=== PATIENT | male | born 2000 | race Caucasian/White ===

== ENCOUNTER 2023-04-08 10:10 | Emergency (ER) | payer BC, SELFPAY ==
[2023-04-08 10:21] VITALS: BP 115/79; PULSE 71; RESP 16; TEMP 36.7; O2SAT 100
--- NOTE | 2023-04-08 10:40 | ED.GENADULT ---
HPI - General Adult General Chief complaint: Dizziness Stated complaint: LIGHT HEADED/CHEST TINGLING THROUGHOUT BODY Time Seen by Provider: 04/08/23 10:24 Source: patient and RN notes reviewed Mode of arrival: ambulatory Limitations: no limitations History of Present Illness HPI narrative: Patient presents today complaining of short episodes of tingling to the chest that extends to the head and face. States these episodes last for only a few seconds and or more frequent when he is lying down to go to sleep. Today he had an episode as he was driving to work and states it was, ?very scary. States he has had 5-6 of these episodes over the past 4 days. Denies chest pain, shortness of breath, or any additional symptoms during these episodes. Denies history of diagnosed anxiety, but states, ?but I a.m. extremely anxious person. ? Reports history of panic attacks, but states this does not feel the same. Related Data Home Medications Medication Instructions Recorded Confirmed finasteride 1 mg tablet 1 mg PO DAILY 04/08/23 04/08/23 omeprazole 40 mg capsule,delayed 40 mg PO DAILY 04/08/23 04/08/23 release Allergies Allergy/AdvReac Type Severity Reaction Status Date / Time No Known Allergies Allergy Verified 04/08/23 10:20 Review of Systems Review of Systems: CONSTITUTIONAL: Denies body aches, fever, chills, or sweats. EYES: Denies visual changes, redness, or discharge. ENT: Denies rhinorrhea, congestion, sore throat, or otalgia. CARDIOVASCULAR: Denies chest pain, palpitations, or edema. RESPIRATORY: Denies cough or dyspnea. GASTROINTESTINAL: Denies abdominal pain, nausea, vomiting, or diarrhea. GENITOURINARY: Denies dysuria or hematuria. SKIN: Denies rash, itching, or wounds. MUSCULOSKELETAL: Denies back pain, joint pain, or myalgia. NEUROLOGIC: Denies headache, numbness, tingling, or weakness. Tingling in the chest and head PSYCH: Denies depression or anxiety. [facility] Social History Social History Smoking status: Never smoker Comments At time of signature, I have reviewed and agree with nursing past medical, surgical, social and family history unless otherwise noted. Please see nursing chart for further information. There is no relevant family history pertinent to the presenting complaint Exam Narrative: GENERAL: Well-appearing, well-nourished, and in no acute distress. HEAD: Normocephalic, atraumatic. EYES: EOMI. PERRL. No redness or drainage. Conjunctivae normal. ENT: Mucous membranes pink and moist. NECK: Normal AROM. Supple. No lymphadenopathy. CHEST: No respiratory distress. Clear to auscultation. HEART: Regular rate and rhythm. No murmur appreciated. Normal peripheral pulses. EXTREMITIES: Normal range of motion. No edema. Hand structural engineer equal and strong. Dorsiflexion and plantar flexion equal and strong against resistance. SKIN: Warm, dry, no rash. Capillary refill normal. Normal skin turgor. NEURO: No focal deficits. Alert and oriented x3. Gait steady. PSYCH: Normal affect. No signs of depression or anxiety. Course Course Level of Care: Express Care Visit Vital Signs Vital signs: Vital Signs Temperature 98.1 F 04/08/23 10:21 Pulse Rate 71 04/08/23 10:21 Respiratory Rate 16 04/08/23 10:21 Blood Pressure 115/79 04/08/23 10:21 Pulse Oximetry 100 04/08/23 10:21 Temperature 98.1 F 04/08/23 10:21 Pulse Rate 71 04/08/23 10:21 Respiratory Rate 16 04/08/23 10:21 Blood Pressure 115/79 04/08/23 10:21 Pulse Oximetry 100 04/08/23 10:21 Reviewed Medical Decision Making MDM Narrative Medical decision making narrative: EKG showed sinus rhythm with sinus arrhythmia. Discussed EKG with patient. Due to diagnostic testing limitations, I gave patient the option of being transferred to the hospital for further evaluation or following up with his PCP. He declines transfer today and would like to
== END 2023-04-08 10:55 | disposition home or self-care (01) ==
PROVIDERS: Emergency Provider Nurse Practitioner; PCP Emergency Medicine
DX: R20.2 Paresthesia of skin (principal); K21.9 Gastro-esophageal reflux disease without esophagitis
CPT/HCPCS: 93005; 99203; G0463

== ENCOUNTER 2023-04-16 18:40 | Emergency (ER) | payer BC, SELFPAY ==
[2023-04-16] VITALS (16 sets, daily range): BP systolic 117–135; BP diastolic 77–97; PULSE 63–89; RESP 13–19; O2SAT 98–100
--- NOTE | 2023-04-16 19:23 | ECG_ITS ---
Measurements Intervals Crane Rate: 82 P: 69 GA: 118 QRS: 71 QRSD: 97 T: 64 QT: 346 QTc: 406 Interpretive Statements SINUS RHYTHM WITH SINUS ARRHYTHMIA WITH SHORT GA INTERVAL BORDERLINE ECG COMPARED TO ECG 04/08/2023 10:47:11 NO SIGNIFICANT CHANGES Electronically Signed On 04-16-2023 21:17:38 SKI MOLDER by Trung Pal D.O.
--- NOTE | 2023-04-16 22:48 | ED.GENADULT ---
[facility] - General Adult General Chief complaint: Arrhythmia/Palpitations Stated complaint: Fast HR Time Seen by Provider: 04/16/23 21:28 Source: patient Mode of arrival: ambulatory Limitations: no limitations History of Present Illness [facility] narrative: This is a 22-year-old male who presents to the ED with chief complaint of palpitations ongoing for the past couple weeks intermittently. Reports that he has occasional episodes where tests come on followed by facial , bilateral hand and chest numbness. reports that these feelings making very uneasy and he was seen by his doctor today. He had another episode while getting his hair cut so decided to come to the ER. the patient states that his symptoms have completely resolved as I interview him. Denies chest pain, shortness of breath, cough, recent illness, LOC, Speech Or vision change. Related Data Home Medications Medication Instructions Recorded Confirmed finasteride 1 mg tablet 1 mg PO DAILY 04/08/23 04/16/23 omeprazole 40 mg capsule,delayed 40 mg PO DAILY 04/08/23 04/16/23 release Allergies Allergy/AdvReac Type Severity Reaction Status Date / Time No Known Allergies Allergy Verified 04/16/23 11:24 Review of Systems Review of Systems: All systems as dictated in [facility] Social History Social History (Updated 04/16/23 @ 11:26 by Kristen Lance MA) Smoking status: Never smoker Alcohol intake: current Substance use: never Do You Feel Safe in your Home?: Yes Lack of Transportation: No Lack of Food: Never True Current Housing: I Have Housing Concerned About Future Housing: No Difficulty Paying Gas/Electric Bills: No Difficulty Paying for Meds: No Currently Unemployed: No Education: Master's Degree or Higher Difficulty w/ Childcare or Family Care: No Exam Narrative: GENERAL: Well-appearing, well-nourished, and in no acute distress. HEAD: Normocephalic, atraumatic. EYES: PERRLA and EOMI. ENT: Nares clear, no rhinorrhea or epistaxis. Mucous membranes moist. Oropharynx without tonsillar hypertrophy exudate or other lesions. NECK: Supple. No adenopathy or masses. CHEST: No respiratory distress. Clear to auscultation. No wheezes rales or rhonchi HEART: Regular rate and rhythm. No murmur heard. Normal peripheral pulses. ABDOMEN: Soft, nontender, nondistended, normal active bowel sounds. MSK: Normal range of motion. No edema. SKIN: Warm, dry, no rash. NEURO: Alert and oriented x3. No focal deficits. Cranial nerves 2-12 intact. 5/5 strength and sensation in the upper and lower extremities. Coordination intact. PSYCH: Normal mood and affect. Course Vital Signs Vital signs: Vital Signs Pulse Rate 89 04/16/23 19:25 Respiratory Rate 15 04/16/23 19:25 Blood Pressure 135/77 04/16/23 19:25 Pulse Oximetry 99 04/16/23 19:25 Pulse Rate 63 04/16/23 23:04 Respiratory Rate 15 04/16/23 23:04 Blood Pressure 117/87 04/16/23 23:04 Pulse Oximetry 100 04/16/23 23:04 Medical Decision Making MDM Narrative Medical decision making narrative: This is a 22-year-old male who presents to the ED with chief complaint of palpitations. Vitals are normal. His physical exam is benign. Neurologic exam fully intact. ECG shows sinus rhythm with sinus arrhythmia it is unchanged from previous 6 days ago. Her symptoms have resolved on my exam. His ECG is stable. Discussed with patient that his exam is very reassuring. He already has labs scheduled for the morning. I discussed that he probably does not need any further workup here in the as symptoms have resolved. He is understanding and agreeable and continue management with his PCP as scheduled. Discharged stable condition with return precautions given. Vital Signs Vital Signs: Vital Signs Pulse Rate 89 04/16/23 19:25 Respiratory Rate 15 04/16/23 19:25 Blood Pressure 135/77 04/16/23 19:25 Pulse Oximetry 99 04/16/23 19:25
== END 2023-04-16 23:05 | disposition home or self-care (01) ==
PROVIDERS: Emergency Provider Physician Assistant; PCP Emergency Medicine
DX: R00.2 Palpitations (principal); R94.31 Abnormal electrocardiogram [ECG] [EKG]
CPT/HCPCS: 93005; 99284

== ENCOUNTER 2023-04-17 09:07 | Outpatient (CLI) | payer BC, SELFPAY ==
[2023-04-17 10:01] LABS: Hematocrit 46.4 % (42.0-52.0); Hemoglobin 15.5 g/dL (14.0-18.0); Mean Corpuscular HGB Conc 33.4 g/dl (32-36); Mean Corpuscular Hemoglobin 29.2 pg (26-34); Mean Corpuscular Volume 87.5 fl (80-100); Mean Platelet Volume 10.5 fl (7.4-10.4); Platelet Count Result 231 k/mm3 (150-375); Red Cell Distribution Width 12.1 % (11.5-14.5); White Blood Count 6.1 K/mm3 (4.5-10.0)
[2023-04-17 11:16] LABS: Alanine Aminotransferase 25 U/L (6-50); Albumin Level 4.8 g/dL (3.5-5.1); Alkaline Phosphatase 68 U/L (38-126); Anion Gap 8 mmol/L (8-16); Aspartate Amino Transferase 27 U/L (17-59); Bilirubin,Total 0.9 mg/dL (0.2-1.3); Blood Urea Nitrogen 20 mg/dL (9-20); Calcium 9.7 mg/dL (8.4-10.2); Carbon Dioxide 30 mmol/L (22-30); Chloride 103 mmol/L (98-107); Cholesterol 147 mg/dL (0-200); Estimated Glomerular Filt Rate > 60; Glucose 88 mg/dL (65-110); HDL Direct 52 mg/dL; Potassium 4.1 mmol/L (3.4-5.0); Sodium 141 mmol/L (137-145); Triglycerides 94 mg/dL (<150)
[2023-04-17 11:26] LABS: LDL Cholesterol Direct 79 mg/dL
[2023-04-20 16:22] LABS: H pylori Ag Stool Not Detected (Not Detected)
== END 2023-04-17 09:08 | disposition home or self-care (01) ==
PROVIDERS: PCP Emergency Medicine; Visit Provider Emergency Medicine
DX: R53.83 Other fatigue (principal); E78.5 Hyperlipidemia, unspecified; E03.9 Hypothyroidism, unspecified; E55.9 Vitamin D deficiency, unspecified; R10.9 Unspecified abdominal pain
CPT/HCPCS: 36415; 80053; 80061; 82306; 84443; 85027; 87338